=== PATIENT | male | born 1980 ===

== ENCOUNTER 2025-01-28 14:08 | Outpatient (CLI) | payer BC, SELFPAY | END 2025-01-28 14:09 | disposition home or self-care (01) | LOC: NFLDREF 01-30 16:21 | PROVIDERS: Visit Provider Nurse Practitioner Family | DX: Z00.00 Encounter for general adult medical examination without abnormal findings (principal); R19.7 Diarrhea, unspecified; Z13.6 Encounter for screening for cardiovascular disorders | CPT/HCPCS: 80053; 80061 ==